=== PATIENT | female | born 1975 | race American Indian/Alaskan Native ===

== ENCOUNTER 2019-05-19 15:07 | Emergency (ER) | payer SELFPAY ==
[2019-05-19 15:16] VITALS: BP 143/82
--- NOTE | 2019-05-19 15:31 | Emergency Department Report ---
Chief Complaint: Medical Clearance Stated Complaint: IMMUNIZATION Time Seen by Provider: 05/19/19 15:20 - HPI History of Present Illness: This is a 44 y.o. F. that presents to the ER for a tdap immunization. Patient states she started a new job and need to get a tetanus vaccine. She was sent to [facility] Tuesday who completed everything else but vaccines. She denies injury, fever, chills, headache, or chest pain. - Exam Vital Signs: Vital Signs 05/19/19 15:13 Temperature 98.8 F Pulse Rate 87 Respiratory 18 Rate Blood Pressure 143/82 [Right] O2 Sat by Pulse 99 Oximetry MSE screening note: Focused history and physical exam performed. Due to findings the following was ordered: ED Medical Decision Making - Medical Decision Making Patient is stable and was examined by me. Patient request tetanus vaccine for work. Denies pain or injury. Patient was instructed to Follow-up with a primary care doctor for immunizations. At time of discharge, the patient does not seem toxic or ill in appearance. No acute signs of distress noted. Patient agrees to discharge treatment plan of care. No further questions noted by the patient. ED Disposition for MSE Clinical Impression: Feared complaint without diagnosis Disposition: DC-01 TO HOME OR SELFCARE Is pt being admited?: No Does the pt Need Aspirin: No Condition: Stable Additional Instructions: Follow up with a primary care clinic for tdap immunization. Referrals: [facility] [Outside] - 3-5 Days [facility] [Outside] - 3-5 Days [facility] [Outside] - 3-5 Days [facility] [Outside] - 3-5 Days Forms: Work/School Release Form(ED) Time of Disposition: 15:34
== END 2019-05-19 15:53 | disposition home or self-care (01) ==
LOC: ED 15:07
DX: Z71.1 Person with feared health complaint in whom no diagnosis is made (principal)
CPT/HCPCS: 99282